=== PATIENT | female | born 1965 | race Caucasian/White ===

== ENCOUNTER 2016-09-22 15:44 | Emergency (ER) | payer MEDICAID ==
[~2016-09-22] VITALS: Ht 152.4 cm; Wt 86.0 kg
[~2016-09-22 15:44] MED LIST: ASPI-556 PO; BENA20 PO; CARV25 PO; HYDR25TA PO; METF500T4 PO
[2016-09-22 16:08] LABS: BASOPHILS % (AUTO) 0.3 % (0.0-2.0); EOSINOPHILS % (AUTO) 0.4 % (1.0-6.0); HEMATOCRIT 48.7 % (36-46); HEMOGLOBIN 15.5 g/dL (12.0-16.0); LYMPHOCYTES % (AUTO) 34.7 % (22.0-44.0); MEAN CORPUSCULAR HGB CONC 31.9 G/dL (31.0-37.0); MEAN CORPUSCULAR VOLUME 88 fL (80-100); MONOCYTES # (AUTO) 0.5 K/uL (0.1-1.0); MONOCYTES % (AUTO) 4.2 % (2.0-9.0); NEUTROPHILS # (AUTO) 6.9 K/uL (1.8-7.7); NEUTROPHILS % (AUTO) 60.4 % (40.0-70.0); PLATELET COUNT (AUTO) 371 K/uL (150-450); RED BLOOD CELL COUNT(AUTO) 5.55 MIL/uL (4.00-5.20); RED CELL DISTRIBUTION WIDTH 13.1 % (11.5-14.5); WHITE BLOOD COUNT (AUTO) 11.5 K/uL (4.5-11.0)
[2016-09-22 16:16] LABS: APPEARANCE,URINE CLEAR (CLEAR); GLUCOSE, URINE (UA) 500 mg/dL (NEGATIVE); KETONES,URINE NEGATIVE (NEGATIVE); LEUKOCYTE ESTERASE ,URINE NEGATIVE (NEGATIVE); OCCULT BLOOD,URINE TRACE (NEGATIVE); PROTEIN,URINE SEE CONFIRM (NEGATIVE)
[2016-09-22 16:18] LABS: CALCIUM, TOTAL 8.6 mg/dL (8.8-10.5); CREATININE 1.58 mg/dL (0.60-1.30); POTASSIUM 3.5 mmol/L (3.5-5.1)
[2016-09-22 16:18] LABS: ADD UA MICROSCOPIC YES
[2016-09-22 16:22] LABS: SQUAMOUS EPITHELIAL CELL,UR Few /LPF (None Seen); SULFOSALICYLIC ACID,URINE 2+ (Negative); WBC,URINE 0-2 /HPF (0-5)
[2016-09-22 16:23] LABS: BILIRUBIN,TOTAL 0.6 mg/dL (0.1-1.0); TOTAL PROTEIN, SERUM 8.1 g/dL (6.4-8.2)
[2016-09-22] MEDS ORDERED: BENAZEPRIL HCL 10 MG TABLET PO ONE ×2 (16:45→17:00)
[2016-09-22] MEDS ORDERED: ONDANSETRON HCL 4 MG/2 ML VIAL IVP ONE (16:45)
[2016-09-22] MEDS ORDERED: DICYCLOMINE HCL 20 MG TABLET PO ONE (16:45)
[2016-09-22] MEDS ORDERED: SODIUM CHLORIDE 0.9% 1,000 ML IV ONE (16:45)
[2016-09-22] MEDS ORDERED: CARVEDILOL 25 MG TABLET PO ONE (17:00)
[2016-09-22] MEDS ORDERED: HydrALAZINE HCL 20 MG/ML VIAL IVP ONE (17:00)
[2016-09-22] MEDS ORDERED: METOCLOPRAMIDE HCL 5 MG/ML 2 ML VIAL IVP ONE (17:30)
[2016-09-22 18:20] VITALS: BP 154/62
== END 2016-09-22 19:10 | disposition home or self-care (01) ==
LOC: EMS 15:45
DX: R11.2 Nausea with vomiting, unspecified (principal); I11.0 Hypertensive heart disease with heart failure; I50.9 Heart failure, unspecified; I25.10 Atherosclerotic heart disease of native coronary artery without angina pectoris; E78.00 Pure hypercholesterolemia, unspecified; J44.9 Chronic obstructive pulmonary disease, unspecified; E11.9 Type 2 diabetes mellitus without complications; F11.90 Opioid use, unspecified, uncomplicated; Z87.891 Personal history of nicotine dependence; Z79.82 Long term (current) use of aspirin
CPT/HCPCS: 36415; 80053; 81001; 82150; 83690; 85025; 93005; 96361; 96374; 96375; 99285; J0360; J2405; J2765; J7030

== ENCOUNTER 2017-04-25 09:46 | Emergency (ER) | payer MEDICAID ==
[~2017-04-25] VITALS: Ht 165.1 cm; Wt 109.1 kg
[2017-04-25 09:58] LABS: GLUCOSE,POINT OF CARE 132 MG/DL (70-110)
[2017-04-25] MEDS ORDERED: LOSA25TA21 PO (10:01)
[2017-04-25] MEDS ORDERED: METH10 PO (10:01)
[2017-04-25 11:57] LABS: APPEARANCE,URINE CLOUDY (CLEAR); BILIRUBIN,URINE NEGATIVE (NEGATIVE); GLUCOSE, URINE (UA) 250 mg/dL (NEGATIVE); KETONES,URINE NEGATIVE (NEGATIVE); LEUKOCYTE ESTERASE ,URINE MODERATE (NEGATIVE); NITRATE,URINE NEGATIVE (NEGATIVE); OCCULT BLOOD,URINE TRACE (NEGATIVE); PH,URINE 6.5 (5.0-8.0); PROTEIN,URINE SEE CONFIRM (NEGATIVE)
[2017-04-25 12:37] LABS: RBC,URINE 0-2 /HPF (0-2); SULFOSALICYLIC ACID,URINE 3+ (Negative); WBC,URINE >100 /HPF (0-5)
[2017-04-25 12:38] LABS: BACTERIA,URINE Few /HPF (None Seen); SQUAMOUS EPITHELIAL CELL,UR Few /LPF (None Seen)
[2017-04-25 12:46] VITALS: BP 147/84
[2017-04-25] MEDS ORDERED: CEPHALEXIN MONOHYDRATE 500 MG CAPSULE PO ONE (13:00)
== END 2017-04-25 13:10 | disposition home or self-care (01) ==
LOC: EMS 09:47
DX: N39.0 Urinary tract infection, site not specified (principal); I11.0 Hypertensive heart disease with heart failure; I50.9 Heart failure, unspecified; I25.10 Atherosclerotic heart disease of native coronary artery without angina pectoris; E78.00 Pure hypercholesterolemia, unspecified; E11.9 Type 2 diabetes mellitus without complications; F17.210 Nicotine dependence, cigarettes, uncomplicated; F11.90 Opioid use, unspecified, uncomplicated
CPT/HCPCS: 82962; 87086; 99284

== ENCOUNTER 2018-08-05 12:31 | Emergency (ER) | payer MEDICAID ==
[~2018-08-05] VITALS: Ht 157.5 cm; Wt 68.2 kg
[~2018-08-05 12:31] MED LIST changes: -BENA20 PO; -CARV25 PO; -HYDR25TA PO; +LOSA25TA41 PO; +METF-960 PO; -METF500T4 PO; +METH10 PO
[2018-08-05 13:04] LABS: GLUCOSE,POINT OF CARE 109 MG/DL (70-110)
[2018-08-05] MEDS ORDERED: LOSARTAN POTASSIUM 25 MG TABLET PO ONE (14:00)
[2018-08-05] MEDS ORDERED: ACETAMINOPHEN 500 MG TABLET PO ONE (14:00)
[2018-08-05 16:06] VITALS: BP 212/84
== END 2018-08-05 16:59 | disposition home or self-care (01) ==
LOC: EMS 12:32
DX: M17.11 Unilateral primary osteoarthritis, right knee (principal); I11.0 Hypertensive heart disease with heart failure; I50.9 Heart failure, unspecified; E11.9 Type 2 diabetes mellitus without complications; E78.00 Pure hypercholesterolemia, unspecified; I25.10 Atherosclerotic heart disease of native coronary artery without angina pectoris; F17.210 Nicotine dependence, cigarettes, uncomplicated; F11.90 Opioid use, unspecified, uncomplicated; Z79.84 Long term (current) use of oral hypoglycemic drugs; Z79.899 Other long term (current) drug therapy
CPT/HCPCS: 99406

== ENCOUNTER 2018-11-10 00:04 | Emergency (ER) | payer MEDICAID ==
[~2018-11-10] VITALS: Ht 162.6 cm; Wt 63.8 kg
[~2018-11-10 00:04] MED LIST changes: +AMLO10TA7 PO; +ATOR20TA86 PO; +CEPH500 PO; -LOSA25TA41 PO; +METO25 PO
[2018-11-10 01:14] LABS: GLUCOSE,POINT OF CARE 174 MG/DL (70-110)
[2018-11-10 01:34] LABS: BASOPHILS % (AUTO) 0.3 % (0.0-2.0); EOSINOPHILS % (AUTO) 3.6 % (1.0-6.0); HEMATOCRIT 34.1 % (36-46); HEMOGLOBIN 11.2 g/dL (12.0-16.0); LYMPHOCYTES # (AUTO) 2.2 K/uL (1.0-4.8); LYMPHOCYTES % (AUTO) 23.9 % (22.0-44.0); MEAN CORPUSCULAR HEMOGLOBIN 29.5 pg (26.0-34.0); MEAN CORPUSCULAR HGB CONC 32.9 G/dL (31.0-37.0); MEAN CORPUSCULAR VOLUME 90 fL (80-100); MONOCYTES # (AUTO) 0.6 K/uL (0.1-1.0); MONOCYTES % (AUTO) 6.8 % (2.0-9.0); NEUTROPHILS # (AUTO) 6.1 K/uL (1.8-7.7); NEUTROPHILS % (AUTO) 65.4 % (40.0-70.0); PLATELET COUNT (AUTO) 225 K/uL (150-450); RED CELL DISTRIBUTION WIDTH 14.7 % (11.5-14.5)
[2018-11-10 01:46] LABS: PROTHROMBIN TIME 10.2 SEC (9.4-11.6)
[2018-11-10 01:48] LABS: CALCIUM, TOTAL 8.2 mg/dL (8.8-10.5); CREATININE 1.7 mg/dL (0.60-1.30); POTASSIUM 4.4 mmol/L (3.5-5.1)
[2018-11-10 01:54] LABS: ALBUMIN 3.1 g/dL (3.4-5.0); BILIRUBIN,TOTAL 0.3 mg/dL (0.1-1.0); TOTAL PROTEIN, SERUM 6.3 g/dL (6.4-8.2)
[2018-11-10 04:18] LABS: APPEARANCE,URINE CLOUDY (CLEAR); GLUCOSE, URINE (UA) 500 mg/dL (NEGATIVE); KETONES,URINE TRACE mg/dL (NEGATIVE); LEUKOCYTE ESTERASE ,URINE MODERATE (NEGATIVE); NITRATE,URINE POSITIVE (NEGATIVE); OCCULT BLOOD,URINE TRACE (NEGATIVE); PH,URINE 5.5 (5.0-8.0); PROTEIN,URINE SEE CONFIRM (NEGATIVE)
[2018-11-10 04:23] LABS: AMPHET/METH SCREEN,URINE NEGATIVE (NEGATIVE); BARBITURATE SCREEN, URINE NEGATIVE (NEGATIVE); BENZODIAZEPINES SCREEN,URINE NEGATIVE (NEGATIVE); CANNABINOID SCREEN,URINE POSITIVE (NEGATIVE); COCAINE SCREEN,URINE NEGATIVE (NEGATIVE); METHADONE SCREEN, URINE POSITIVE (NEGATIVE); OPIATE SCREEN,URINE NEGATIVE (NEGATIVE); PHENCYCLIDINE SCREEN,URINE NEGATIVE (NEGATIVE)
[2018-11-10 04:24] LABS: BILIRUBIN,URINE PRELIM. POSITIVE (NEGATIVE)
[2018-11-10 04:27] LABS: WBC,URINE 51-100 /HPF (0-5)
[2018-11-10 04:28] LABS: BACTERIA,URINE Moderate /HPF (None Seen); SQUAMOUS EPITHELIAL CELL,UR Rare /LPF (None Seen); SULFOSALICYLIC ACID,URINE 1+ (Negative)
[2018-11-10] MEDS ORDERED: LIDOCAINE/PF 1% 2 ML VIAL IM ONE (05:00)
[2018-11-10] MEDS ORDERED: CefTRIAXone SODIUM 1 GM/VIAL IM ONE (05:00)
[2018-11-10 05:16] VITALS: BP 140/80
== END 2018-11-10 05:26 | disposition home or self-care (01) ==
LOC: EMS 00:06
DX: N39.0 Urinary tract infection, site not specified (principal); R55 Syncope and collapse; I25.10 Atherosclerotic heart disease of native coronary artery without angina pectoris; I11.0 Hypertensive heart disease with heart failure; I50.9 Heart failure, unspecified; J44.9 Chronic obstructive pulmonary disease, unspecified; E11.9 Type 2 diabetes mellitus without complications; E78.00 Pure hypercholesterolemia, unspecified; F17.210 Nicotine dependence, cigarettes, uncomplicated; F11.90 Opioid use, unspecified, uncomplicated; Z86.73 Personal history of transient ischemic attack (TIA), and cerebral infarction without residual deficits; Z79.84 Long term (current) use of oral hypoglycemic drugs; Z79.82 Long term (current) use of aspirin
CPT/HCPCS: 36415; 71045; 80053; 80307; 81001; 82550; 82962; 83880; 84484; 85025; 85610; 85730; 87077; 87086; 87186; 93005; 96372; 99285; J0696; J3490; 51701

== ENCOUNTER 2018-12-25 17:35 | Emergency (ER) | payer MEDICAID ==
[~2018-12-25] VITALS: Ht 162.6 cm; Wt 63.0 kg
[2018-12-25] MEDS ORDERED: METO25 PO (17:58)
[2018-12-25] MEDS ORDERED: ATOR40TA28 PO (17:58)
[2018-12-25] MEDS ORDERED: BENA10TA12 PO (18:00)
[2018-12-25] MEDS ORDERED: METOPROLOL TARTRATE 5 MG/5 ML VIAL IVP ONE (18:15)
[2018-12-25] MEDS ORDERED: SODIUM CHLORIDE 0.9% 1,000 ML IV ONE (18:15)
[2018-12-25] MEDS ORDERED: ONDANSETRON HCL 4 MG/2 ML VIAL IVP ONE (18:15)
[2018-12-25 18:29] LABS: BASOPHILS % (AUTO) 0.3 % (0.0-2.0); EOSINOPHILS % (AUTO) 0.1 % (1.0-6.0); HEMOGLOBIN 15.2 g/dL (12.0-16.0); LYMPHOCYTES # (AUTO) 1.4 K/uL (1.0-4.8); LYMPHOCYTES % (AUTO) 11.6 % (22.0-44.0); MEAN CORPUSCULAR HEMOGLOBIN 29.2 pg (26.0-34.0); MEAN CORPUSCULAR HGB CONC 32.4 G/dL (31.0-37.0); MEAN CORPUSCULAR VOLUME 90 fL (80-100); MONOCYTES # (AUTO) 0.2 K/uL (0.1-1.0); MONOCYTES % (AUTO) 1.4 % (2.0-9.0); NEUTROPHILS # (AUTO) 10.5 K/uL (1.8-7.7); PLATELET COUNT (AUTO) 344 K/uL (150-450); RED CELL DISTRIBUTION WIDTH 13.1 % (11.5-14.5)
[2018-12-25 18:32] LABS: NEUTROPHILS % (AUTO) 86.6 % (40.0-70.0)
[2018-12-25 18:46] LABS: CALCIUM, TOTAL 9.2 mg/dL (8.8-10.5); CREATININE 1.1 mg/dL (0.60-1.30); POTASSIUM 3.7 mmol/L (3.5-5.1)
[2018-12-25 18:53] LABS: ALBUMIN 3.9 g/dL (3.4-5.0); BILIRUBIN,TOTAL 0.7 mg/dL (0.1-1.0)
[2018-12-25] MEDS ORDERED: HydrALAZINE HCL 20 MG/ML VIAL IVP ONE ×2 (19:15→22:30)
[2018-12-25] MEDS ORDERED: IOVERSOL 350 MG/ML 150 ML VIAL ONE (20:27)
[2018-12-25] MEDS ORDERED: SODIUM CHLORIDE 0.9% 100 ML ONE (20:27)
[2018-12-25] MEDS ORDERED: MORPHINE SULFATE 4 MG/ML SYRINGE IVP ONE ×2 (20:30→22:30)
[2018-12-25 21:58] LABS: APPEARANCE,URINE CLEAR (CLEAR); BILIRUBIN,URINE NEGATIVE (NEGATIVE); GLUCOSE, URINE (UA) >=1000 mg/dL (NEGATIVE); KETONES,URINE 15 mg/dL (NEGATIVE); LEUKOCYTE ESTERASE ,URINE TRACE (NEGATIVE); NITRATE,URINE NEGATIVE (NEGATIVE); OCCULT BLOOD,URINE TRACE (NEGATIVE); PROTEIN,URINE SEE CONFIRM (NEGATIVE); UROBILINOGEN,URINE 0.2 mg/dL (<=1.0)
[2018-12-25 22:08] LABS: BACTERIA,URINE None Seen /HPF (None Seen); SQUAMOUS EPITHELIAL CELL,UR Rare /LPF (None Seen)
[2018-12-25 22:09] LABS: SULFOSALICYLIC ACID,URINE 1+ (Negative)
[2018-12-26 01:00] VITALS: BP 169/73
== END 2018-12-26 01:32 | disposition home or self-care (01) ==
LOC: EMS 17:36
DX: I11.0 Hypertensive heart disease with heart failure (principal); I50.9 Heart failure, unspecified; R11.2 Nausea with vomiting, unspecified; R10.84 Generalized abdominal pain; I25.10 Atherosclerotic heart disease of native coronary artery without angina pectoris; E11.9 Type 2 diabetes mellitus without complications; E78.00 Pure hypercholesterolemia, unspecified; J44.9 Chronic obstructive pulmonary disease, unspecified; F17.210 Nicotine dependence, cigarettes, uncomplicated; Z86.73 Personal history of transient ischemic attack (TIA), and cerebral infarction without residual deficits; Z79.82 Long term (current) use of aspirin; Z79.84 Long term (current) use of oral hypoglycemic drugs
CPT/HCPCS: 36415; 70450; 74177; 80053; 81001; 82962; 83690; 85025; 96361; 96374; 96375; 96376; 99284; J0360; J2270; J2405; J3490; J7030; J7050; Q9967

== ENCOUNTER 2019-02-10 10:44 | Inpatient (IN) | payer MEDICAID ==
[~2019-02-10] VITALS: Ht 162.6 cm; Wt 67.2 kg
[~2019-02-10 10:44] MED LIST changes: -AMLO10TA7 PO; -ATOR20TA86 PO; +ATOR40TA28 PO; +BENA10TA12 PO; -CEPH500 PO
[2019-02-10] MEDS ORDERED: ASPI-891 PO (11:13)
[2019-02-10] MEDS ORDERED: 0.9% SODIUM CHLORIDE 10 ML SYRINGE IVP PRN ×2 (11:15→15:00)
[2019-02-10] MEDS ORDERED: SODIUM CHLORIDE 0.9% 1,000 ML IV ONE ×2 (11:30→13:00)
[2019-02-10 11:38] LABS: BASOPHILS % (AUTO) 0.4 % (0.0-2.0); EOSINOPHILS % (AUTO) 1.7 % (1.0-6.0); HEMATOCRIT 43.4 % (36-46); HEMOGLOBIN 14.8 g/dL (12.0-16.0); LYMPHOCYTES % (AUTO) 44.4 % (22.0-44.0); MEAN CORPUSCULAR HGB CONC 34.2 G/dL (31.0-37.0); MEAN CORPUSCULAR VOLUME 88 fL (80-100); MONOCYTES # (AUTO) 0.3 K/uL (0.1-1.0); NEUTROPHILS # (AUTO) 3.3 K/uL (1.8-7.7); NEUTROPHILS % (AUTO) 48.5 % (40.0-70.0); PLATELET COUNT (AUTO) 265 K/uL (150-450); RED BLOOD CELL COUNT(AUTO) 4.95 MIL/uL (4.00-5.20); RED CELL DISTRIBUTION WIDTH 12.7 % (11.5-14.5)
[2019-02-10 11:49] LABS: PROTHROMBIN TIME 10.4 SEC (9.4-11.6)
[2019-02-10 11:58] LABS: ANION GAP 13 mmol/L (8-16); CALCIUM, TOTAL 8.8 mg/dL (8.8-10.5); CARBON DIOXIDE 25 mmol/L (22-29); CHLORIDE 102 mmol/L (98-107); CREATININE 2.62 mg/dL (0.60-1.30); GLOMERULAR FILTR. RATE CALC 19 mL/min (>60); GLUCOSE,RANDOM 87 mg/dL (70-110); SODIUM SERUM 140 mmol/L (136-145); UREA NITROGEN, BLOOD 31 mg/dL (7-18)
[2019-02-10 12:06] LABS: LACTIC ACID 2.5 mmol/L (0.4-2.0)
[2019-02-10 12:12] LABS: ALANINE AMINOTRANSFERASE 32 U/L (12-78); ALBUMIN 3.7 g/dL (3.4-5.0); ALKALINE PHOSPHATASE 62 U/L (46-116); ASPARTATE AMINOTRANSFERASE 24 U/L (15-37); BILIRUBIN,TOTAL 0.4 mg/dL (0.1-1.0); TOTAL PROTEIN, SERUM 7.4 g/dL (6.4-8.2)
[2019-02-10 12:32] LABS: THYROID STIMULATING HORMONE 0.89 uIU/mL (0.36-3.74)
[2019-02-10 13:31] LABS: APPEARANCE,URINE CLOUDY (CLEAR); BILIRUBIN,URINE NEGATIVE (NEGATIVE); GLUCOSE, URINE (UA) NEGATIVE (NEGATIVE); KETONES,URINE NEGATIVE (NEGATIVE); LEUKOCYTE ESTERASE ,URINE TRACE (NEGATIVE); NITRATE,URINE NEGATIVE (NEGATIVE); OCCULT BLOOD,URINE NEGATIVE (NEGATIVE); PROTEIN,URINE TRACE (NEGATIVE); UROBILINOGEN,URINE 0.2 mg/dL (<=1.0)
[2019-02-10 13:39] LABS: AMPHET/METH SCREEN,URINE NEGATIVE (NEGATIVE); BARBITURATE SCREEN, URINE NEGATIVE (NEGATIVE); BENZODIAZEPINES SCREEN,URINE NEGATIVE (NEGATIVE); CANNABINOID SCREEN,URINE POSITIVE (NEGATIVE); COCAINE SCREEN,URINE NEGATIVE (NEGATIVE); METHADONE SCREEN, URINE POSITIVE (NEGATIVE); OPIATE SCREEN,URINE NEGATIVE (NEGATIVE)
[2019-02-10 13:40] LABS: PHENCYCLIDINE SCREEN,URINE NEGATIVE (NEGATIVE)
[2019-02-10 13:42] LABS: BACTERIA,URINE None Seen /HPF (None Seen); RBC,URINE None Seen /HPF (0-2); SQUAMOUS EPITHELIAL CELL,UR Few /LPF (None Seen)
[2019-02-10] MEDS ORDERED: ONDANSETRON HCL 4 MG/2 ML VIAL IVP PRN ×2 (15:00→15:15)
[2019-02-10] MEDS ORDERED: ACETAMINOPHEN 325 MG TABLET PO PRN ×2 (15:00→15:15)
[2019-02-10] MEDS ORDERED: BISACODYL 10 MG RECTAL RECTAL SUPPOSITORY PR PRN (15:15)
[2019-02-10] MEDS ORDERED: DEXTROSE 50%-WATER 25 GM/50 ML SYRINGE IVP PRN (15:15)
[2019-02-10 16:45] VITALS: BP 154/69
[2019-02-10] MEDS ORDERED: PNEUMOCOCCAL VACCINE POLYVALENT 0.5 ML VIAL [PPSV23] IM ONE (17:30)
[2019-02-10] MEDS: SODIUM CHLORIDE 0.9% 1,000 ML IV SCH ×2 (18:19→21:57)
[2019-02-10] MEDS: CloNIDine HCL 0.1 MG TABLET PO PRN (18:45)
[2019-02-10 19:26] LABS: GLUCOMETER DEV NAME(LOC) 4E.2; GLUCOSE,POINT OF CARE 124 MG/DL (70-110)
[2019-02-10 19:43] VITALS: BP 165/109
[2019-02-10 20:46] LABS: GLUCOMETER DEV NAME(LOC) 6N.2; GLUCOSE,POINT OF CARE 119 MG/DL (70-110)
[2019-02-10] MEDS: DOCUSATE SODIUM 100 MG CAPSULE PO SCH (21:00)
[2019-02-10 23:10] VITALS: BP 196/78
[2019-02-11] MEDS: CloNIDine HCL 0.1 MG TABLET PO PRN ×3 (01:45→23:58)
[2019-02-11 04:47] VITALS: BP 209/75
[2019-02-11] MEDS ORDERED: CloNIDine HCL 0.1 MG TABLET PO ONE (05:00)
[2019-02-11] MEDS: INSULIN LISPRO 100 UNITS/ML SQ PRN ×3 (06:25→23:02)
[2019-02-11 06:46] LABS: GLUCOMETER DEV NAME(LOC) 6N.2; GLUCOSE,POINT OF CARE 145 MG/DL (70-110)
[2019-02-11 06:54] LABS: CREATININE 1.57 mg/dL (0.60-1.30); POTASSIUM 4.3 mmol/L (3.5-5.1)
[2019-02-11 08:19] VITALS: BP 186/75
[2019-02-11] MEDS: FAMOTIDINE 20 MG TABLET PO SCH (08:58)
[2019-02-11] MEDS: AmLODIPine BESYLATE 10 MG TABLET PO SCH (08:59)
[2019-02-11] MEDS: METHADONE HCL 10 MG TABLET PO SCH (08:59)
[2019-02-11] MEDS: DOCUSATE SODIUM 100 MG CAPSULE PO SCH ×2 (08:59→21:25)
[2019-02-11] MEDS: LOSARTAN POTASSIUM 25 MG TABLET PO SCH ×2 (11:10→21:24)
[2019-02-11 15:20] VITALS: BP 174/71
[2019-02-11 19:46] LABS: GLUCOMETER DEV NAME(LOC) 6N.2; GLUCOSE,POINT OF CARE 86 MG/DL (70-110)
[2019-02-11 19:46] LABS: GLUCOMETER DEV NAME(LOC) 6N.2; GLUCOSE,POINT OF CARE 144 MG/DL (70-110)
[2019-02-11 20:10] VITALS: BP 157/62
[2019-02-11] MEDS: ATORVASTATIN CALCIUM 20 MG TABLET PO SCH (21:32)
[2019-02-11 23:40] VITALS: BP 193/78
[2019-02-11 23:41] LABS: GLUCOMETER DEV NAME(LOC) 6N.2; GLUCOSE,POINT OF CARE 146 MG/DL (70-110)
[2019-02-12] VITALS (9 sets, daily range): BP systolic 148–196; BP diastolic 69–113
[2019-02-12] MEDS: AmLODIPine BESYLATE 10 MG TABLET PO SCH (05:08)
[2019-02-12] MEDS: LOSARTAN POTASSIUM 25 MG TABLET PO SCH (05:09)
[2019-02-12 06:27] LABS: GLUCOMETER DEV NAME(LOC) 6N.2; GLUCOSE,POINT OF CARE 108 MG/DL (70-110)
[2019-02-12] MEDS ORDERED: CloNIDine HCL 0.1 MG TABLET PO ONE (07:00)
[2019-02-12 08:02] LABS: CALCIUM, TOTAL 8.1 mg/dL (8.8-10.5); CREATININE 1.07 mg/dL (0.60-1.30); POTASSIUM 3.4 mmol/L (3.5-5.1)
[2019-02-12] MEDS: FAMOTIDINE 20 MG TABLET PO SCH (08:19)
[2019-02-12] MEDS: DOCUSATE SODIUM 100 MG CAPSULE PO SCH ×2 (08:19→20:38)
[2019-02-12] MEDS: ASPIRIN 81 MG CHEWABLE TABLET PO SCH (08:19)
[2019-02-12] MEDS: METHADONE HCL 10 MG TABLET PO SCH (08:19)
[2019-02-12] MEDS: SODIUM CHLORIDE 0.9% 1,000 ML IV SCH (08:35)
[2019-02-12] MEDS ORDERED: LOSARTAN POTASSIUM 25 MG TABLET PO ONE (09:00)
[2019-02-12] MEDS: INSULIN LISPRO 100 UNITS/ML SQ PRN (11:20)
[2019-02-12 12:01] LABS: GLUCOMETER DEV NAME(LOC) 6N.2; GLUCOSE,POINT OF CARE 165 MG/DL (70-110)
[2019-02-12] MEDS: CloNIDine HCL 0.1 MG TABLET PO PRN ×2 (15:28→23:33)
[2019-02-12 18:01] LABS: GLUCOMETER DEV NAME(LOC) 4E.2; GLUCOSE,POINT OF CARE 101 MG/DL (70-110)
[2019-02-12] MEDS ORDERED: POTASSIUM CHL 10 MEQ/WATER 50 ML IV PRN (18:30)
[2019-02-12] MEDS: POTASSIUM CHLORIDE 20 MEQ ER TABLET PO PRN (18:38)
[2019-02-12] MEDS: ATORVASTATIN CALCIUM 20 MG TABLET PO SCH (20:38)
[2019-02-12] MEDS: LOSARTAN POTASSIUM 50 MG TABLET PO SCH (20:38)
[2019-02-12] MEDS ORDERED: LOSARTAN POTASSIUM 50 MG TABLET PO SCH (21:00)
[2019-02-12 21:46] LABS: GLUCOMETER DEV NAME(LOC) 4E.2; GLUCOSE,POINT OF CARE 108 MG/DL (70-110)
[2019-02-13] VITALS (7 sets, daily range): BP systolic 146–197; BP diastolic 65–97
[2019-02-13] MEDS: CloNIDine HCL 0.1 MG TABLET PO PRN ×2 (06:23→17:33)
[2019-02-13] MEDS: AmLODIPine BESYLATE 10 MG TABLET PO SCH (08:46)
[2019-02-13] MEDS: FAMOTIDINE 20 MG TABLET PO SCH (08:46)
[2019-02-13] MEDS: LOSARTAN POTASSIUM 50 MG TABLET PO SCH ×2 (08:46→20:37)
[2019-02-13] MEDS: METHADONE HCL 10 MG TABLET PO SCH (08:46)
[2019-02-13] MEDS: ASPIRIN 81 MG CHEWABLE TABLET PO SCH (08:46)
[2019-02-13] MEDS: DOCUSATE SODIUM 100 MG CAPSULE PO SCH ×2 (08:46→20:37)
[2019-02-13 11:41] LABS: GLUCOMETER DEV NAME(LOC) 6N.2; GLUCOSE,POINT OF CARE 100 MG/DL (70-110)
[2019-02-13 11:41] LABS: GLUCOMETER DEV NAME(LOC) 6N.2; GLUCOSE,POINT OF CARE 112 MG/DL (70-110)
[2019-02-13 12:31] LABS: GLUCOMETER DEV NAME(LOC) 6N.2; GLUCOSE,POINT OF CARE 137 MG/DL (70-110)
[2019-02-13] MEDS: HYDROCHLOROTHIAZIDE 25 MG TABLET PO SCH (13:34)
[2019-02-13 20:36] LABS: GLUCOMETER DEV NAME(LOC) 4E.2; GLUCOSE,POINT OF CARE 100 MG/DL (70-110)
[2019-02-13] MEDS: ATORVASTATIN CALCIUM 20 MG TABLET PO SCH (20:37)
[2019-02-13] MEDS: INSULIN LISPRO 100 UNITS/ML SQ PRN (21:01)
[2019-02-13 23:21] LABS: GLUCOMETER DEV NAME(LOC) 6N.2; GLUCOSE,POINT OF CARE 159 MG/DL (70-110)
[2019-02-14] VITALS (8 sets, daily range): BP systolic 134–193; BP diastolic 62–86
[2019-02-14] MEDS: CloNIDine HCL 0.1 MG TABLET PO PRN ×2 (04:54→09:59)
[2019-02-14 05:24] LABS: BASOPHILS % (AUTO) 0.3 % (0.0-2.0); HEMOGLOBIN 13.5 g/dL (12.0-16.0); LYMPHOCYTES % (AUTO) 48.1 % (22.0-44.0); MEAN CORPUSCULAR HGB CONC 35.5 G/dL (31.0-37.0); MEAN CORPUSCULAR VOLUME 88 fL (80-100); MONOCYTES # (AUTO) 0.5 K/uL (0.1-1.0); MONOCYTES % (AUTO) 6.6 % (2.0-9.0); NEUTROPHILS # (AUTO) 3.4 K/uL (1.8-7.7); PLATELET COUNT (AUTO) 210 K/uL (150-450); RED BLOOD CELL COUNT(AUTO) 4.35 MIL/uL (4.00-5.20); RED CELL DISTRIBUTION WIDTH 12.4 % (11.5-14.5)
[2019-02-14 05:34] LABS: CALCIUM, TOTAL 8.5 mg/dL (8.8-10.5); CREATININE 1.11 mg/dL (0.60-1.30); POTASSIUM 3.4 mmol/L (3.5-5.1)
[2019-02-14 06:46] LABS: GLUCOMETER DEV NAME(LOC) 6N.2; GLUCOSE,POINT OF CARE 95 MG/DL (70-110)
[2019-02-14] MEDS: ASPIRIN 81 MG CHEWABLE TABLET PO SCH (08:55)
[2019-02-14] MEDS: METHADONE HCL 10 MG TABLET PO SCH (08:55)
[2019-02-14] MEDS: POTASSIUM CHLORIDE 20 MEQ ER TABLET PO PRN (08:55)
[2019-02-14] MEDS: HYDROCHLOROTHIAZIDE 25 MG TABLET PO SCH (08:55)
[2019-02-14] MEDS: FAMOTIDINE 20 MG TABLET PO SCH (08:55)
[2019-02-14] MEDS: LOSARTAN POTASSIUM 50 MG TABLET PO SCH ×2 (08:56→20:55)
[2019-02-14] MEDS: AmLODIPine BESYLATE 10 MG TABLET PO SCH ×2 (08:56→20:55)
[2019-02-14] MEDS: DOCUSATE SODIUM 100 MG CAPSULE PO SCH ×2 (08:56→20:55)
[2019-02-14 16:55] LABS: GLUCOMETER DEV NAME(LOC) 6N.2; GLUCOSE,POINT OF CARE 129 MG/DL (70-110)
[2019-02-14] MEDS: INSULIN LISPRO 100 UNITS/ML SQ PRN (17:45)
[2019-02-14 20:20] LABS: GLUCOMETER DEV NAME(LOC) 4E.2; GLUCOSE,POINT OF CARE 185 MG/DL (70-110)
[2019-02-14] MEDS: ATORVASTATIN CALCIUM 20 MG TABLET PO SCH (20:55)
[2019-02-15] MEDS: CloNIDine HCL 0.1 MG TABLET PO PRN ×2 (00:09→15:50)
[2019-02-15 01:54] LABS: GLUCOMETER DEV NAME(LOC) 6N.2; GLUCOSE,POINT OF CARE 75 MG/DL (70-110)
[2019-02-15 05:08] VITALS: BP 182/86
[2019-02-15 06:15] VITALS: BP 155/76
[2019-02-15 06:50] LABS: GLUCOMETER DEV NAME(LOC) 6N.2; GLUCOSE,POINT OF CARE 126 MG/DL (70-110)
[2019-02-15 07:15] VITALS: BP_SYST 106; BP_SYST 155; BP_DIAS 73; BP_DIAS 76
[2019-02-15] MEDS: HYDROCHLOROTHIAZIDE 25 MG TABLET PO SCH (07:46)
[2019-02-15] MEDS: LOSARTAN POTASSIUM 50 MG TABLET PO SCH (07:46)
[2019-02-15] MEDS: AmLODIPine BESYLATE 10 MG TABLET PO SCH (07:46)
[2019-02-15] MEDS: FAMOTIDINE 20 MG TABLET PO SCH (07:47)
[2019-02-15] MEDS: METHADONE HCL 10 MG TABLET PO SCH (07:47)
[2019-02-15] MEDS: ASPIRIN 81 MG CHEWABLE TABLET PO SCH (07:47)
[2019-02-15] MEDS: DOCUSATE SODIUM 100 MG CAPSULE PO SCH (07:49)
[2019-02-15 11:38] VITALS: BP 154/68
[2019-02-15 14:59] LABS: GLUCOMETER DEV NAME(LOC) 4E.2; GLUCOSE,POINT OF CARE 132 MG/DL (70-110)
[2019-02-15 15:29] VITALS: BP 161/73
[2019-02-15] MEDS ORDERED: HYDR25TA PO (16:05)
[2019-02-15] MEDS ORDERED: LOSA50TA64 PO (16:09)
[2019-02-15] MEDS ORDERED: AMLO10TA7 PO (16:13)
== END 2019-02-15 17:38 | disposition home or self-care (01) | DRG 469 ==
LOC: EMS 10:47 → 5S 14:35 → 4E 15:31 → 6N 02-13 08:48 → 4E 02-13 11:18
PROVIDERS: ADMIT Internal Medicine; ATTEND Internal Medicine
DX: N17.9 Acute kidney failure, unspecified (principal); I11.0 Hypertensive heart disease with heart failure; F03.90 Unspecified dementia, unspecified severity, without behavioral disturbance, psychotic disturbance, mood disturbance, and anxiety; E11.319 Type 2 diabetes mellitus with unspecified diabetic retinopathy without macular edema; I50.9 Heart failure, unspecified; E86.0 Dehydration; E78.00 Pure hypercholesterolemia, unspecified; I25.10 Atherosclerotic heart disease of native coronary artery without angina pectoris; F17.210 Nicotine dependence, cigarettes, uncomplicated; J44.9 Chronic obstructive pulmonary disease, unspecified; Z82.49 Family history of ischemic heart disease and other diseases of the circulatory system; Z86.73 Personal history of transient ischemic attack (TIA), and cerebral infarction without residual deficits; Z28.21 Immunization not carried out because of patient refusal; Z79.899 Other long term (current) drug therapy; Z79.82 Long term (current) use of aspirin
CPT/HCPCS: 70450; 83605; 84132; 84443; 87040; 93005; G0378; G0480; J7030